=== PATIENT | female | born 1960 | race African-American/Black ===

== ENCOUNTER 2023-06-10 16:34 | Emergency (ER) | payer OTHER, SELFPAY ==
--- NOTE | 2023-06-10 16:40 | ED.EYEPROB ---
HPI - Eye Problem General Chief complaint: Eye Problems Stated complaint: eye pain & swelling this morning Time Seen by Provider: 06/10/23 17:38 Source: patient Mode of arrival: ambulatory Limitations: no limitations History of Present Illness HPI Narrative: 63 yold female with pmh of HTN and pre-diabetes presents to the ED for right lower eyelid swelling and pain. patient denies any redness to eyes, discharge from eyes, change or lost of vision, or any recent trauma tot he eye. patient denies fever, chills, or headache. patient states no other complaitns. Related Data Previous Rx's Medication Instructions Recorded amoxicillin 875 mg-potassium 1 tab PO Q12H 7 days #14 tabs 06/10/23 clavulanate 125 mg tablet naproxen 500 mg tablet 500 mg PO BID PRN pain 7 days #14 06/10/23 tabs Allergies Allergy/AdvReac Type Severity Reaction Status Date / Time No Known Allergies Allergy Verified 06/10/23 16:46 Review of Systems Review of Systems: right lower eyelid pain Yes all other systems are reviewed and are negative [facility] Social History Advance Directives: No Advance Directives Information Provided: No Physical Exam Vital Signs: Vital Signs: Last Vital Signs Temp 97.2 F 06/10/23 16:42 Pulse 88 06/10/23 16:42 Resp 18 06/10/23 16:42 BP 146/82 H 06/10/23 16:42 Pulse Ox 98 06/10/23 16:42 O2 Del Method Room Air 06/10/23 16:42 BMI result Body Mass Index 33.1 Const: General: cooperative, healthy appearing, comfortable, no acute distress, well developed, alert and awake Orientation/consciousness: oriented to person, oriented to place, oriented to time and patient oriented x3 HEENT: Head: Yes normal to inspection, Yes No palpable skull fracture present, Yes normocephalic and Yes atraumatic Eyes: Other: Visual acuity both eyes 20/30 Eyes/upper lids images: 1. Swelling and tenderness on palpation. Negative for pus discharge. Possible internal stye. Negative for erythema of scleral or upper eyelid swelling. Negative for photophobia, foreign body, or corneal abrasion. Neck: Neck: Yes normal visual inspection, Yes full ROM, Yes no lymphadenopathy, Yes no meningeal signs, Yes trachea midline, Yes supple, No anterior neck swelling and No tender Chest: Chest palpation & inspection: normal inspection of the chest and normal palpation of entire chest wall Resp: Effort & Inspection: normal respiratory effort and able to speak in complete sentences Auscultation: clear to auscultation bilaterally Cardio: Jugular venous distension: no JVD Heart sounds: S1 normal heart sound present and S2 normal heart sound present GI: Inspection: Yes normal to inspection and No abdominal wall ecchymosis Palpation (GI): Soft to palpation, not firm, nontender, no guarding and not rigid : General: Yes no CVA tenderness Back/Spine/Pelvis: Back: no CVA tenderness and No back tenderness Skin: General skin exam: no rashes or lesions noted, elasticity normal, turgor normal and atrophy Neuro: General: oriented to person, oriented to place, oriented to time, patient oriented x3, gait normal, tone normal, moves all extremities, Normal light touch and pain sensation, no meningeal signs, no focal motor deficits, CN's II-XI intact bilaterally and normal sensation to monofilament Extrem: General: Yes normal to inspection and Yes full ROM Psych: Appearance: grossly normal, well kempt and not disheveled Course Course Course Narrative: This is a rapid medical exam. Deferred additional HPI, ROS, PE to primary provider. 63 yo female with medical history DM, HTN coming from sober living house with complaints of right eye pain with waking after touching it with her hand with waking. Pain has now resolved. NO blurry vision. Has some discomfort if she touches the eye and some swelling around the eye. No recent URI symptoms. Uses glasses for reading only. VSS Medical Decision Making Medical Decision Making [facility] Narrative: 63-year-old female with right lower eyelid pain and swelling without any trauma. Patient denies any visual changes, nausea, vomiting, headache, blurry vision came or eye redness. Visual acuity 20/30 both eyes. Differential preseptal cellulitis versus internal stye. Patient educated on warm compress on the right lower eyelid 4 times a day for 15 minutes. Will discharge with antibiotics. not suspect orbital cellulitis, globe rupture, orbital fracture, corneal abrasion, conjunctivitis. not suspecting glaucoma Differential Diagnosis Differential Diagnoses: The differential diagnosis associated with the presentation includes ( Internal stye, she lays on, preseptal cellulitis, orbital cellulitis, conjunctivitis,) External Record Review External record reviewed: Other ( prior visit) Prescription Management I considered prescription management with: Pain Medication and Antibiotic Discharge Plan Discharge Clinical Impression: Periorbital cellulitis, Hordeolum Patient Disposition: Home, Self-Care Instructions: Stye (ED), Periorbital Cellulitis in Adults (ED) Additional Instructions: history physical exam indicate periorbital cellulitis versus stye. Recommend warm compress 4 times a day for 15 more minutes on eyelids. Recommend lid massaging and lid washing. You will be discharged with Augmentin. Please follow-up with your primary care provider or eye doctor. Return to ED immediately for loss/change in vision, eye pain, swelling of eyelids, headache, photophobia, dizziness, fever, chills, redness of the face, inability to move eye, or any other concerning symptoms. Prescriptions: New amoxicillin-pot clavulanate 875-125 mg tablet 1 tab PO Q12H 7 Days Qty: 14 0RF naproxen 500 mg tablet 500 mg PO BID PRN (Reason: pain) 7 Days Qty: 14 0RF Interventions: ED Discharge Assessment Last Done: 06/10/23 18:40 Discharge Date/Time: 06/10/23 18:51 Print Language: Estonian
[2023-06-10 16:41] VITALS: BP 138/82; PULSE 85; O2SAT 95
[2023-06-10 16:42] VITALS: BP 146/82; PULSE 88; RESP 18; TEMP 36.2; O2SAT 98; BMI 33.1
== END 2023-06-10 18:51 | disposition home or self-care (01) ==
PROVIDERS: Emergency Provider Emergency Medicine
DX: L03.213 Periorbital cellulitis (principal); H00.012 Hordeolum externum right lower eyelid
CPT/HCPCS: 99282; 99283